=== PATIENT | female | born 1975 | race Two or more races ===

== ENCOUNTER 2019-10-28 15:29 | Emergency (ER) | payer OTHER ==
[~2019-10-28] VITALS: Ht 165.1 cm; Wt 58.1 kg
[2019-10-28] MEDS ORDERED: RISPERDAL1 MG PO (15:42)
[2019-10-28] MEDS ORDERED: CLONAZEPAM0.5 MG PO (15:42)
[2019-10-28] MEDS ORDERED: ZOLOFT100 MG PO (15:42)
== END 2019-10-28 18:01 | disposition home or self-care (01) ==
LOC: ER 15:29
DX: N76.4 Abscess of vulva (principal)

== ENCOUNTER 2019-11-29 05:45 | Day surgery (SDC) | payer OTHER ==
[~2019-11-29 05:45] MED LIST: CLONAZEPAM0.5 MG PO; RISPERDAL1 MG PO; STELARA90 MG/1 ML; ZOLOFT100 MG PO
[2019-11-29] MEDS ORDERED: PERCOCET 5-3251 EACH PO (08:20)
== END 2019-11-29 12:10 | disposition home or self-care (01) ==
LOC: CIR.AMB 05:45
DX: K50.111 Crohn's disease of large intestine with rectal bleeding (principal); K62.4 Stenosis of anus and rectum; K62.89 Other specified diseases of anus and rectum

== ENCOUNTER 2021-05-13 10:13 | Inpatient (IN) | payer OTHER ==
[~2021-05-13] VITALS: Ht 165.1 cm; Wt 62.1 kg
[~2021-05-13 10:13] MED LIST changes: +PERCOCET 5-3251 EACH PO
--- NOTE | 2021-05-13 10:33 | NUR ---
SE RECIBE PTE ALERTA Y ORIENTADA X3,REFIERE TENER DOLOR ANDOMINAL ES PTE DE CROHN,LA REFIERE EL DR.NICOLAS LITTLE PARA REALIZARLE JESS COLOSTOMIA.
--- NOTE | 2021-05-13 11:39 | NUR ---
PACIENTE EVALUADA POR EL QUIEN ORDENA [place] MEDICO.SE ORIENTA A PACIENTE SOBRE EL MISMO ESTA REFIERE ENTENDER. SE REALIZAN MUESTRAS DE LABORATORIO BAJO MEDIDAS ASEPTICAS Y SE ADMINISTRAN MEDICAMENTOS KEREN ORDEN MEDICA. SE ORIENTA SOBRE CT CON CONTRASTE.
[2021-05-17] MEDS ORDERED: INTESTINEX680 M1 PO (15:19)
[2021-05-17] MEDS ORDERED: CIPRO500 MG PO (15:19)
== END 2021-05-17 16:16 | disposition home or self-care (01) | DRG 330 ==
LOC: ER 10:13 → SEC-K 17:11 → SURG 17:11
PROVIDERS: ADMIT Surgery; ATTEND Surgery
PROC: 0D1N4Z4 Bypass Sigmoid Colon to Cutaneous, Percutaneous Endoscopic Approach (ICD-10-PCS; principal; 2021-05-13)
PROC: BW2110Z Computerized Tomography (CT Scan) of Abdomen and Pelvis using Low Osmolar Contrast, Unenhanced and Enhanced (ICD-10-PCS; 2021-05-13)
DX: K62.4 Stenosis of anus and rectum (principal); K50.10 Crohn's disease of large intestine without complications; K62.5 Hemorrhage of anus and rectum; K56.50 Intestinal adhesions [bands], unspecified as to partial versus complete obstruction; K52.89 Other specified noninfective gastroenteritis and colitis

== ENCOUNTER 2022-11-05 13:29 | Inpatient (IN) | payer OTHER ==
[~2022-11-05] VITALS: Ht 162.6 cm; Wt 63.5 kg
[~2022-11-05 13:29] MED LIST changes: +CIPRO500 MG PO; +INTESTINEX680 M1 PO
--- NOTE | 2022-11-05 13:35 | NUR ---
PACIENTE ALERTA Y ORIENTADA X 3. REFIERE DESDE BENITO EN LA NOCHE DOLOR ABDOMINAL Y NAUSEAS.
--- NOTE | 2022-11-05 17:30 | NUR ---
PTE ES EVALUADO POR DR CASTELAN. PTE SE ORIENTA SOBRE TRATAMIENTO MEDICO Y VERBALIZA QUE ACEPTA. SE EJECUTA ORDEN MEDICA EN DE LA CRUZ TOTALIDAD.
== END 2022-11-07 09:56 | disposition left against medical advice (07) | DRG 392 ==
LOC: ER 13:29 → SURH 20:12
PROVIDERS: ADMIT Surgery; ATTEND Surgery
DX: K52.89 Other specified noninfective gastroenteritis and colitis (principal); K50.90 Crohn's disease, unspecified, without complications; Z20.822 Contact with and (suspected) exposure to COVID-19